=== PATIENT | male | born 1980 | race Caucasian/White ===

== ENCOUNTER 2021-02-18 05:08 | Emergency (ER) | payer MEDICAID ==
[~2021-02-18] VITALS: Ht 182.9 cm; Wt 82.0 kg
[2021-02-18 05:10] VITALS: BP 129/91
--- NOTE | 2021-02-18 05:15 | NUR ---
pt ambulated to room. calm and cooperative. no acute distress. on assesment, pt states he is NOT suicidal anymore or at this time. MD and PA advised and they are aware. urine sample sent for uds, and pt in [facility] and said he'll take a nap while waiting.
--- NOTE | 2021-02-18 06:12 | NUR ---
pt resting in bed. no acute distress. to be discharged.
--- NOTE | 2021-02-18 06:24 | NUR ---
PT AMBULATING AND CAME TO RN AND STATED HE'S READY TO BE DISCHARGED. PT AWAKE AND ALERT, AND STATES THAT HE DOES NOT HAVE SUICIDAL IDEATIONS. F/U AND D/C INSTRUCTIONS GIVEN TO PT AND HE V/U.
[2021-02-18 07:03] LABS: AMPHETAMINE SCREEN, URINE Negative (Negative); BARBITURATE SCREEN, URINE Negative (Negative); BENZODIAZEPINE SCREEN, URINE Negative (Negative); CANNABINOID SCREEN, URINE Negative (Negative); COCAINE SCREEN, URINE Negative (Negative); METHADONE SCREEN, URINE Negative (Negative); OPIATE SCREEN, URINE Negative (Negative)
== END 2021-02-18 06:26 | disposition home or self-care (01) ==
LOC: EDBD 05:08 → ED 05:38
DX: F41.1 Generalized anxiety disorder (principal); Z72.9 Problem related to lifestyle, unspecified
CPT/HCPCS: 80307; 99283